=== PATIENT | male | born 1975 | race African-American/Black ===

== ENCOUNTER 2017-07-24 08:49 | Emergency (ER) | payer BC, SELFPAY ==
[2017-07-24] MEDS ORDERED: Loperamide HCl 2 MG CAP ONE (09:42)
[2017-07-24 10:08] LABS: Band 2 % (5-11); Eosinophils 5 % (0-10); Hemoglobin 16.8 g/dL (14.0-18.0); Lymphocytes 5 % (21-51); MDiff Complete? YES; Mean Corpuscular HGB CONC 34.2 g/dL (32.0-36.0); Mean Corpuscular Hemoglobin 28.6 pg (27.0-31.0); Mean Corpuscular Volume 83.8 fl (80.0-94.0); Mean Platelet Volume 8.3 fL (7.4-10.4); Monocytes 8 % (0-10); Neutrophil 78 % (42-75); PLT Morphology Comment Appears Adequate; Platelet Count 241 thou/uL (130-400); Reactive Lymphocytes 2 % (0-10); Red Blood Cell (RBC) Count 5.87 mill/uL (4.70-6.10); Stomatocytes SLIGHT = 2-5 cells (100X) (0-1/hpf); White Blood Cell (WBC) Count 6.9 thou/uL (4.8-10.8)
[2017-07-24 10:14] LABS: ALT (SGPT) 24 U/L (8-55); AST (SGOT) 27 U/L (5-34); Albumin 4.2 g/dL (3.5-5.0); Alkaline Phosphatase 50 U/L (40-150); Anion Gap 15 mmol/L (10-20); BUN (Urea Nitrogen) 12 mg/dL (8.9-20.6); Bilirubin, Total 0.7 mg/dL (0.2-1.2); Calc. Creatinine Clearance 0 mL/min (70-130); Calcium 9.2 mg/dL (7.8-10.44); Carbon Dioxide 21 mmol/L (22-29); Chloride 103 mmol/L (98-107); Estimated GFR-MDRD Greater than 90; Globulin 3.8 g/dL (2.4-3.5); Glucose 104 mg/dL (70-105); Lipase 27 U/L (8-78); Sodium 135 mmol/L (136-145)
--- NOTE | 2017-07-24 13:57 | CT ---
ABDOMEN CT WITH CONTAST PELVIC CT WITH CONTRAST: HISTORY: Abdominal pain. Diarrhea. Symptoms x 1 day. COMPARISON: None. TECHNIQUE: Abdomen and pelvic CT are performed with IV contrast. Enteric contrast was also administered. Coron al reformatted imaging was submitted for interpretation. FINDINGS: ABDOMEN CT: Lung bases are clear. The descending thoracic aorta and abdominal aorta have a normal caliber. No p eriaortic fat stranding. Nonspecific gastrohepatic lymph nodes. No periportal or retrocrural lymphadenopathy. The gallbladder is unremarkable. The intra- and extrahepatic portal vein is patent. Liver, spleen, pancreas, and adrenal glands have appropriate enhancement. Calcified granulomas in th e spleen and pancreas are noted. No mesenteric mass, lymphadenopathy, free air, or free fluid. Symmetric enhancement of the kidneys. Bilaterally, no obstructive uropathy. Gastric mucosa, duodenum, and multiple normal-caliber small bowel loops are identified. No evidence of small bowel obstruction. The ileocecal junction is normal. Normal-caliber appendix. Contrast an d fecal material in a nondistended, nondilated colon. There is diverticulosis in the left hemicolon. No diverticulitis. PELVIC CT: The urinary bladder is unremarkable. No pelvic mass, lymphadenopathy, free air, or free fluid. No l ytic or blastic lesions in the osseous structures. IMPRESSION: 1. No evidence of bowel obstruction. 2. No evidence of obstructive uropathy. 3. Normal caliber appendix. POS: [facility]
== END 2017-07-24 12:40 | disposition home or self-care (01) ==
LOC: SCSER 08:49
DX: R19.7 Diarrhea, unspecified (principal); R10.13 Epigastric pain; F17.220 Nicotine dependence, chewing tobacco, uncomplicated
CPT/HCPCS: 74177; 80053; 83690; 85025; 96360

== ENCOUNTER 2020-05-20 13:56 | Emergency (ER) | payer SELFPAY ==
[2020-05-20 14:29] LABS: #Basophils 0.1 thou/uL (0.0-0.2); #Eosinphils 0.5 thou/uL (0.0-0.7); #Lymphocytes 1.9 thou/uL (1.20-3.40); #Monocytes 0.9 thou/uL (0.11-0.59); #Neutrophils 4.8 thou/uL (1.40-6.50); %Basophils 1.2 % (0.0-1.0); %Eosinophils 5.8 % (0.0-10.0); %Lymphocytes 23.3 % (21.0-51.0); %Monocytes 10.5 % (0.0-10.0); %Neutrophils 59.2 % (42.0-75.0); Hemoglobin 15.8 g/dL (14.0-18.0); Mean Corpuscular HGB CONC 34.1 g/dL (32.0-36.0); Mean Corpuscular Hemoglobin 29.9 pg (27.0-31.0); Mean Corpuscular Volume 87.6 fL (78.0-98.0); Mean Platelet Volume 7.6 fL (7.4-10.4); Platelet Count 277 thou/uL (130-400); RBC Distribution Width 12.4 % (11.5-14.5); White Blood Cell (WBC) Count 8.2 thou/uL (4.8-10.8)
[2020-05-20 14:54] LABS: ALT (SGPT) 19 U/L (8-55); AST (SGOT) 26 U/L (5-34); Albumin 4.1 g/dL (3.5-5.0); Alkaline Phosphatase 67 U/L (40-110); Anion Gap 15 mmol/L (10-20); BUN (Urea Nitrogen) 15 mg/dL (8.9-20.6); Bilirubin, Total 0.4 mg/dL (0.2-1.2); CK (CPK) 159 U/L (30-200); Calc. Creatinine Clearance 0 mL/min (70-130); Calcium 9.2 mg/dL (7.8-10.44); Carbon Dioxide 24 mmol/L (22-29); Chloride 105 mmol/L (98-107); Globulin 3.8 g/dL (2.4-3.5); Glucose 111 mg/dL (70-105); Lipase 33 U/L (8-78); Potassium 4.5 mmol/L (3.5-5.1); Protein, Total 7.9 g/dL (6.0-8.3); Sodium 139 mmol/L (136-145)
== END 2020-05-20 16:35 | disposition home or self-care (01) ==
LOC: ERS 13:56
DX: R10.9 Unspecified abdominal pain (principal); F17.220 Nicotine dependence, chewing tobacco, uncomplicated
CPT/HCPCS: 36415; 80053; 82550; 83690; 85025; 96372; 99284; J0500